=== PATIENT | female | born 1990 | race Caucasian/White ===

== ENCOUNTER 2018-07-24 17:07 | Emergency (ER) | payer OTHER ==
[~2018-07-24] VITALS: Ht 165.1 cm; Wt 99.8 kg
[~2018-07-24 17:07] MED LIST: ACET-787 PO
[2018-07-24 17:18] VITALS: BP 125/77
[2018-07-24] MEDS ORDERED: KETOROLAC 60 MG/2 ML VIAL IM ONE (19:10)
[2018-07-24 20:09] VITALS: BP 118/69
== END 2018-07-24 20:10 | disposition home or self-care (01) ==
LOC: MED 17:07
DX: M54.5 Low back pain (principal); Z90.49 Acquired absence of other specified parts of digestive tract
CPT/HCPCS: 81002; 81025; 96372; 99283; J1885

== ENCOUNTER 2023-06-26 20:37 | Emergency (ER) | payer OTHER ==
[~2023-06-26] VITALS: Ht 165.1 cm; Wt 105.7 kg
[~2023-06-26 20:37] MED LIST changes: -ACET-787 PO; +HYDR-5191 PO
[2023-06-26 21:25] VITALS: BP 125/88; PULSE 89; RESP 16; TEMP 96.9; O2SAT 99
[2023-06-27] MEDS ORDERED: MORPHINE SULFATE 4 MG/ML SYR IM ONE
[2023-06-27] MEDS ORDERED: HYDR-5191 PO (00:17)
[2023-06-27] MEDS ORDERED: IBUP-2213 PO (00:17)
[2023-06-27 00:56] VITALS: BP 125/88; PULSE 89; RESP 16; TEMP 96.9; O2SAT 99
== END 2023-06-27 00:56 | disposition home or self-care (01) ==
LOC: MED 20:37
DX: S82.64XA Nondisplaced fracture of lateral malleolus of right fibula, initial encounter for closed fracture (principal); F17.200 Nicotine dependence, unspecified, uncomplicated; Z90.49 Acquired absence of other specified parts of digestive tract; Z79.899 Other long term (current) drug therapy; W18.39XA Other fall on same level, initial encounter; Y92.89 Other specified places as the place of occurrence of the external cause; Y93.89 Activity, other specified; Y99.8 Other external cause status
CPT/HCPCS: 29515; 73610; 96372; 99283; J2270